=== PATIENT | female | born 1965 | race Caucasian/White ===

== ENCOUNTER 2016-08-27 12:53 | Emergency (ER) | payer OTHER ==
[~2016-08-27 12:53] MED LIST: 'PARAFON FORTE500 M1 PO; ALBUTEROL0.09 MG/A2; AMBIEN10 M1 PO; AMLODIPINE BES2.5 MG PO; AMLODIPINE BESY1 TAB PO; AMOXICILLIN500 MG PO; ATENOLOL25 MG PO; ATENOLOL50 M1 PO; ATENOLOL50 MG PO; B12,B-12,B 12500 MC1 PO; BACTRIM DS 8001 TA1 PO; CARAFATE1 G1 PO; CATAPRES0.1 MG PO; CHLORTHALIDONE25 MG PO; CIPRO500 MG PO; CIPROFLOXACIN500 MG PO; COLACE100 MG PO; COREG25 MG PO; FEOSOL325 MG PO; FLONASE 0.05% 121 EA NAS; FLONASE ALLERG9.9 ML NAS; HYDR25T PO; HYDROCODONE BIT1 T11 PO; Hydralazine Hyd25 MG PO; IBU800 MG PO; K-DUR20 MEQ PO; K-Dur 20MEQ20 MEQ PO; LISINOPRIL AND1 TA2 PO; LISINOPRIL HCTZ1 TA1 PO; LISINOPRIL/HCTZ PO; LISINOPRIL20 MG PO; LOPRESSOR50 MG PO; MACROBID100 M1 PO; MEDROL DOSEPAK4 MG PO; METOPROLOL TART50 M1 PO; MOTRIN IB200 MG PO; MOTRIN800 MG PO; Motrin,Rufen800 MG PO; NEXIUM40 MG PO; NORCO 325 MG-101 TAB PO; NORCO 5-325 TA1 EACH PO; NORVASC10 MG PO; PERCOCET 325 MG1 TA2 PO; PHENERGAN25 M1 PO; PHENERGAN25 M3 PO; PREDNICOT20 MG PO; PREDNISONE10 MG PO; PRILOSEC20 M2 PO; PROMETHAZINE25 M1 PO; PROTONIX TR40 M1 PO; PROTONIX40 MG PO; Phenergan25 MG PO; ROBITUSSIN DM 105 ML PO; SKELAXIN800 M1 PO; TAMIFLU75 MG PO; TRAMADOL HCL50 MG PO; TYLENOL EXTRA500 M1 PO; ULTRAM50 MG PO; VENTOLIN H0.09 MG/AC INH; VICO10300 PO; VICODIN 5/500 505 MG PO; VICODIN 500 MG-1 TAB PO; VOLTAREN GEL1% TP; VOLTAREN11 TP; VOLTAREN50 M1 PO; ZOLPIDEM TART10 MG PO; ZYRTEC10 MG PO; Zestril,Prinivi40 MG PO
[2016-08-27 13:08] VITALS: BP 180/110
[2016-08-27] MEDS ORDERED: CLARITIN10 MG PO (13:50)
[2016-08-27] MEDS ORDERED: MUCINEX1200 M1 PO (13:50)
[2016-09-28] MEDS ORDERED: 'PARAFON FORTE500 M1 PO (12:26)
[2016-09-28] MEDS ORDERED: PREDNISONE10 MG PO (12:26)
== END 2016-08-27 14:13 | disposition home or self-care (01) ==
LOC: ED 12:53
DX: R05 Cough (principal); R19.7 Diarrhea, unspecified; I10 Essential (primary) hypertension; Z88.1 Allergy status to other antibiotic agents; Z88.6 Allergy status to analgesic agent; Z88.8 Allergy status to other drugs, medicaments and biological substances

== ENCOUNTER 2016-11-13 14:48 | Emergency (ER) | payer OTHER ==
[~2016-11-13] VITALS: Wt 117.9 kg
[~2016-11-13 14:48] MED LIST changes: +CLARITIN10 MG PO; +MUCINEX1200 M1 PO
[2016-11-13 15:44] LABS: BASO # 0.1 10*3/uL (0.0-0.1); BASO % 1.1 % (0.0-1.0); EOS # 0.2 10*3/uL (0.0-0.4); EOS % 4.1 % (1.0-4.0); HEMATOCRIT 35.2 % (37.0-47.0); HEMOGLOBIN 11.3 g/dl (12.0-16.0); LYMPH # 2.3 10*3/uL (1.3-4.4); LYMPH % 42.6 % (27.0-41.0); MEAN CELL VOLUME 88.2 fl (81.0-99.0); MEAN CORPUSCULAR HGB 28.3 pg (27.0-31.0); MEAN CORPUSCULAR HGB CONC 32.1 g/dl (33.0-37.0); MONO # 0.5 10*3/uL (0.1-1.0); MONO % 8.3 % (3.0-9.0); NEUT # 2.4 10*3/uL (2.3-7.9); NEUT % 43.5 % (47.0-73.0); PLATELET COUNT AUTOMATED 319 10*3/uL (130-400); RED BLOOD COUNT 3.99 10*6/uL (4.10-5.10); RED CELL DISTRI WIDTH 15.9 % (0-14.5); WHITE BLOOD COUNT 5.4 10*3/uL (4.8-10.8)
[2016-11-13 16:02] LABS: BUN 13 mg/dl (7-24); CARBON DIOXIDE 22 mmol/L (21-32); CHLORIDE 110 mmol/L (98-107); EST GLOM FILT AFRICAN AMERICAN > 60 ml/min; GLUCOSE 90 mg/dL (65-99); LDH 233 U/L (84-246); MAGNESIUM 2.1 mg/dL (1.5-2.1); POTASSIUM 4.1 mmol/L (3.5-5.1); SGOT/AST 21 IU/L (3-35); SGPT/ALT 30 U/L (12-78); SODIUM 142 mmol/L (136-145)
[2016-11-13 16:06] LABS: ALKALINE PHOSPHATASE 82 U/L (45-117); BILIRUBIN, TOTAL 0.3 mg/dl (0.2-1.0); CKMB 0.8 ng/ml (0.5-3.6); CPK 114 U/L (26-192); TOTAL PROTEIN 7.5 gm/dL (6.4-8.2)
[2016-11-13 16:07] LABS: TROPONIN I < 0.015 ng/ml (<0.045)
== END 2016-11-13 17:26 | disposition home or self-care (01) ==
LOC: ED 14:48
PROVIDERS: Physician Assistant
DX: I10 Essential (primary) hypertension (principal); Z87.442 Personal history of urinary calculi; Z88.1 Allergy status to other antibiotic agents; Z88.6 Allergy status to analgesic agent; Z88.8 Allergy status to other drugs, medicaments and biological substances

== ENCOUNTER → 2016-11-20 | Outpatient (CLI) | payer OTHER | END | disposition home or self-care (01) | LOC: RESCLI 13:19 | DX: I10 Essential (primary) hypertension (principal); N20.0 Calculus of kidney; R41.3 Other amnesia ==

== ENCOUNTER → 2016-12-18 | Outpatient (CLI) | payer OTHER ==
[2016-12-18 16:31] LABS: BASO # 0.1 10*3/uL (0.0-0.1); BASO % 0.5 % (0.0-1.0); EOS # 0.1 10*3/uL (0.0-0.4); EOS % 1.2 % (1.0-4.0); HEMATOCRIT 35.9 % (37.0-47.0); HEMOGLOBIN 11.5 g/dl (12.0-16.0); IG # 0.1 10*3/uL (0.0-0.1); LYMPH # 3.7 10*3/uL (1.3-4.4); LYMPH % 33.5 % (27.0-41.0); MEAN CELL VOLUME 89.5 fl (81.0-99.0); MEAN CORPUSCULAR HGB 28.7 pg (27.0-31.0); MEAN PLATELET VOLUME 10.3 fl (9.6-12.3); MONO # 0.9 10*3/uL (0.1-1.0); MONO % 8.2 % (3.0-9.0); NEUT # 6.2 10*3/uL (2.3-7.9); NEUT % 56.1 % (47.0-73.0); PLATELET COUNT AUTOMATED 343 10*3/uL (130-400); RED BLOOD COUNT 4.01 10*6/uL (4.10-5.10); RED CELL DISTRI WIDTH 15.2 % (0-14.5); WHITE BLOOD COUNT 11.1 10*3/uL (4.8-10.8)
== END | disposition home or self-care (01) ==
LOC: RESCLI 02:02 → LAB 02:02 → RESCLI 08:33
PROVIDERS: Emergency Medicine
DX: R23.2 Flushing (principal)

== ENCOUNTER → 2017-01-15 | Outpatient (CLI) | payer OTHER | END | disposition home or self-care (01) | LOC: RESCLI | DX: I10 Essential (primary) hypertension (principal); E66.9 Obesity, unspecified; J45.909 Unspecified asthma, uncomplicated ==

== ENCOUNTER → 2017-01-31 | Outpatient (CLI) | payer OTHER ==
[2017-01-31 10:40] LABS: BILIRUBIN NEGATIVE (NEGATIVE); BLOOD NEGATIVE (NEGATIVE); CLARITY SL CLOUDY (CLEAR); COLOR YELLOW (YELLOW); GLUCOSE NEGATIVE (NEGATIVE); KETONE NEGATIVE (NEGATIVE); LEUKO ESTERASE 2+ (NEGATIVE); NITRITE NEGATIVE (NEGATIVE); PROTEIN NEGATIVE (NEGATIVE); UROBILINOGEN 0.2 E.U./dl (0.2-1.0)
[2017-01-31 10:48] LABS: BACTERIA TRACE; EPITHELIAL CELLS 16-20
[2017-01-31 10:49] LABS: URINE REFLEX COMMENT YES (NO)
== END | disposition home or self-care (01) ==
LOC: RESCLI 02:26
PROVIDERS: Internal Medicine
DX: I10 Essential (primary) hypertension (principal); R39.9 Unspecified symptoms and signs involving the genitourinary system; F41.9 Anxiety disorder, unspecified; G47.00 Insomnia, unspecified; E66.9 Obesity, unspecified; R23.8 Other skin changes; R23.2 Flushing

== ENCOUNTER → 2017-02-05 | Outpatient (CLI) | payer OTHER ==
[2017-02-05 19:26] LABS: HEMATOCRIT 34.7 % (37.0-47.0); HEMOGLOBIN 11.1 g/dl (12.0-16.0); MEAN CELL VOLUME 91.3 fl (81.0-99.0); MEAN CORPUSCULAR HGB 29.2 pg (27.0-31.0); MEAN PLATELET VOLUME 10.7 fl (9.6-12.3); RED BLOOD COUNT 3.8 10*6/uL (4.10-5.10); RED CELL DISTRI WIDTH 14.6 % (0-14.5); WHITE BLOOD COUNT 11.6 10*3/uL (4.8-10.8)
[2017-02-05 19:51] LABS: ALBUMIN 3.3 gm/dl (3.1-4.5); ALKALINE PHOSPHATASE 71 U/L (45-117); BILIRUBIN, TOTAL 0.2 mg/dl (0.2-1.0); BUN 17 mg/dl (7-24); CARBON DIOXIDE 22 mmol/L (21-32); CHLORIDE 113 mmol/L (98-107); CHOLESTEROL 213 mg/dL (<200); EST GLOM FILT AFRICAN AMERICAN > 60 ml/min; GLUCOSE 83 mg/dL (65-99); HDL CHOLESTEROL 72 mg/dl (40-60); LDL CHOLESTEROL 108 mg/dL (9-159); POTASSIUM 3.6 mmol/L (3.5-5.1); SGOT/AST 29 IU/L (3-35); SGPT/ALT 48 U/L (12-78); SODIUM 147 mmol/L (136-145); TOTAL PROTEIN 6.9 gm/dL (6.4-8.2); TRIGLYCERIDES 166 mg/dl (<150); VLDL CHOLESTEROL 33 mg/dL (6-40)
[2017-02-05 19:57] LABS: HEMOGLOBIN A1c 5.2 % (4.8-5.6)
== END | disposition home or self-care (01) ==
LOC: LAB 01:57 → US 18:00
PROVIDERS: Internal Medicine
DX: E66.9 Obesity, unspecified (principal); F41.9 Anxiety disorder, unspecified; G47.00 Insomnia, unspecified; I10 Essential (primary) hypertension; R39.0 Extravasation of urine; R39.9 Unspecified symptoms and signs involving the genitourinary system; R23.2 Flushing

== ENCOUNTER → 2017-02-14 | Outpatient (CLI) | payer OTHER | END | disposition home or self-care (01) | LOC: RESCLI 00:26 | DX: I10 Essential (primary) hypertension (principal); N39.0 Urinary tract infection, site not specified; E66.9 Obesity, unspecified; F41.9 Anxiety disorder, unspecified; J45.909 Unspecified asthma, uncomplicated ==

== ENCOUNTER → 2017-03-19 | Outpatient (CLI) | payer OTHER | END | disposition home or self-care (01) | LOC: RESCLI 02:19 | DX: I10 Essential (primary) hypertension (principal); E66.9 Obesity, unspecified; F41.9 Anxiety disorder, unspecified ==

== ENCOUNTER 2017-03-26 15:31 | Emergency (ER) | payer OTHER ==
[~2017-03-26] VITALS: Wt 117.9 kg
[2017-03-26 15:32] VITALS: BP 176/87
[2017-03-26 16:49] LABS: BASO % 0.7 % (0.0-1.0); EOS # 0.2 10*3/uL (0.0-0.4); EOS % 3.5 % (1.0-4.0); HEMATOCRIT 32.4 % (37.0-47.0); HEMOGLOBIN 10.5 g/dl (12.0-16.0); LYMPH # 1.9 10*3/uL (1.3-4.4); LYMPH % 33.7 % (27.0-41.0); MEAN CELL VOLUME 89.5 fl (81.0-99.0); MEAN CORPUSCULAR HGB CONC 32.4 g/dl (33.0-37.0); MEAN PLATELET VOLUME 10.1 fl (9.6-12.3); MONO # 0.5 10*3/uL (0.1-1.0); MONO % 8.9 % (3.0-9.0); NEUT % 52.9 % (47.0-73.0); PLATELET COUNT AUTOMATED 267 10*3/uL (130-400); RED BLOOD COUNT 3.62 10*6/uL (4.10-5.10); RED CELL DISTRI WIDTH 14.1 % (0-14.5); WHITE BLOOD COUNT 5.8 10*3/uL (4.8-10.8)
[2017-03-26 17:04] LABS: ALBUMIN 3.3 gm/dl (3.1-4.5); ALKALINE PHOSPHATASE 80 U/L (45-117); BILIRUBIN, TOTAL 0.3 mg/dl (0.2-1.0); BUN 11 mg/dl (7-24); CARBON DIOXIDE 24 mmol/L (21-32); CHLORIDE 113 mmol/L (98-107); EST GLOM FILT AFRICAN AMERICAN > 60 ml/min; GLUCOSE 96 mg/dL (65-99); POTASSIUM 3.8 mmol/L (3.5-5.1); SGOT/AST 28 IU/L (3-35); SGPT/ALT 25 U/L (12-78); SODIUM 145 mmol/L (136-145); TOTAL PROTEIN 6.4 gm/dL (6.4-8.2)
== END 2017-03-26 17:19 | disposition home or self-care (01) ==
LOC: ED 15:31
PROVIDERS: Registered Nurse
DX: R60.0 Localized edema (principal); Z88.1 Allergy status to other antibiotic agents; Z88.6 Allergy status to analgesic agent; Z88.8 Allergy status to other drugs, medicaments and biological substances

== ENCOUNTER → 2017-04-23 | Outpatient (CLI) | payer OTHER | END | disposition home or self-care (01) | LOC: RESCLI 10:03 | DX: K21.9 Gastro-esophageal reflux disease without esophagitis (principal); I10 Essential (primary) hypertension; F41.9 Anxiety disorder, unspecified; J45.909 Unspecified asthma, uncomplicated; Z88.6 Allergy status to analgesic agent; Z88.1 Allergy status to other antibiotic agents; Z88.8 Allergy status to other drugs, medicaments and biological substances ==

== ENCOUNTER → 2017-05-18 | Day surgery (SDC) | payer OTHER ==
[~2017-05-18] VITALS: Ht 175.2 cm; Wt 117.9 kg
[~2017-05-18] MED LIST changes: +CARAFATE1 GM PO; +NORCO 10-325 T1 EACH PO; +PRILOSEC10 M2 PO
--- NOTE | ~2017-05-18 | O ---
[place], [place] OPERATIVE NOTE NAME: KENNEDY MAYS UNIT #: [id number] ROOM: DOCTOR: DENEEN PAGAN MD BIRTHDATE: [birth year] DOS: GASTRO-ENDOSCOPIC REPORT INDICATIONS: A 51-year-old patient who has presented with chief complaint of epigastric distress, dyspepsia. The patient with history of GI bleed in past. She has been on Prilosec 40 mg every day. FAMILY HISTORY: Noncontributory. PAST MEDICAL HISTORY: Asthma, hypertension. ALLERGIES: IMITREX, ZOFRAN, ZOMIG, KEFLEX, TORADOL. PAST SURGICAL HISTORY: Right hydronephrosis, renal lithiasis. PROCEDURE: Today's procedure part of investigation is panendoscopy plus biopsy. PREMEDICATION: Versed and Diprivan. SCOPE: Olympus forward-viewing gastroscope Q10 video. REPORT: After putting the patient in the left lateral position and after application of lubricant to the scope, the scope was introduced. Thereafter, under direct visualization, I advanced through the length of the esophagus without difficulty. Esophagus, cervicothoracic distally carefully examined. Gastric pouch was entered. Multi-punctate small antral ulcerations were identified, photographed, margin of one was biopsied. Duodenal bulb, second and third part within normal limits. Scope was gradually withdrawn along the lesser curvature. GI reflexion of the scope reveals cardia to be benign. Air was suctioned out. The patient was extubated, tolerated procedure well. IMPRESSION: Multi-antral ulcerations, status post biopsy. PLAN AND DISCUSSION: We are going to continue with omeprazole 40 mg daily, additional Carafate 1 gram one hour before meals and at bedtime was added for the next 2 months. The patient taking 2 to 3 Aleve a day and that is the culprit as far as induction of the ulcerations is concerned. The patient advised to substitute with Tylenol if she has ____ the therapy is going to be ____ above. Thank you very much indeed. [place], [place] OPERATIVE NOTE NAME: KENNEDY MAYS UNIT #: [id number] ROOM: DOCTOR: DENEEN PAGAN MD BIRTHDATE: [birth year] DENEEN PAGAN MD CM:ANITRA:OPERATIVE NOTE 1619 07 DENEEN PAGAN MD 05/18/17 2007 interface
[2017-05-18 14:39] VITALS: BP 177/88
[2017-05-18 16:15] VITALS: BP 156/86
[2017-05-18 16:30] VITALS: BP 156/82
[2017-05-18 16:45] VITALS: BP 145/84
== END | disposition home or self-care (01) ==
LOC: SDC 05-16 10:15
DX: K29.50 Unspecified chronic gastritis without bleeding (principal); K25.9 Gastric ulcer, unspecified as acute or chronic, without hemorrhage or perforation; I10 Essential (primary) hypertension; J45.909 Unspecified asthma, uncomplicated; Z88.8 Allergy status to other drugs, medicaments and biological substances; G43.909 Migraine, unspecified, not intractable, without status migrainosus; D64.9 Anemia, unspecified; F32.9 Major depressive disorder, single episode, unspecified; M19.90 Unspecified osteoarthritis, unspecified site; Z98.51 Tubal ligation status; Z98.890 Other specified postprocedural states; Z80.9 Family history of malignant neoplasm, unspecified; Z83.3 Family history of diabetes mellitus

== ENCOUNTER 2017-06-02 12:56 | Emergency (ER) | payer OTHER ==
[~2017-06-02] VITALS: Ht 175.2 cm; Wt 117.9 kg
[2017-06-02 13:05] VITALS: BP 196/120
== END 2017-06-02 13:14 | disposition home or self-care (01) ==
LOC: ED 12:56
DX: K08.89 Other specified disorders of teeth and supporting structures (principal); I11.0 Hypertensive heart disease with heart failure; I50.9 Heart failure, unspecified; J45.909 Unspecified asthma, uncomplicated; M17.10 Unilateral primary osteoarthritis, unspecified knee; M17.12 Unilateral primary osteoarthritis, left knee; G43.909 Migraine, unspecified, not intractable, without status migrainosus; Z88.1 Allergy status to other antibiotic agents; Z88.6 Allergy status to analgesic agent; Z88.8 Allergy status to other drugs, medicaments and biological substances; Z79.899 Other long term (current) drug therapy

== ENCOUNTER 2017-06-25 15:32 | Inpatient (IN) | payer OTHER ==
[~2017-06-25] VITALS: Ht 175.3 cm; Wt 119.5 kg
[2017-06-25 15:45] VITALS: BP 182/97
[2017-06-25 16:21] LABS: BASO # 0.1 10*3/uL (0.0-0.1); BASO % 0.5 % (0.0-1.0); EOS # 0.1 10*3/uL (0.0-0.4); EOS % 1.3 % (1.0-4.0); HEMATOCRIT 40.8 % (37.0-47.0); HEMOGLOBIN 13.2 g/dl (12.0-16.0); LYMPH # 2.8 10*3/uL (1.3-4.4); LYMPH % 29.1 % (27.0-41.0); MEAN CELL VOLUME 87.9 fl (81.0-99.0); MEAN CORPUSCULAR HGB 28.4 pg (27.0-31.0); MEAN CORPUSCULAR HGB CONC 32.4 g/dl (33.0-37.0); MEAN PLATELET VOLUME 10.7 fl (9.6-12.3); MONO # 0.9 10*3/uL (0.1-1.0); MONO % 9.1 % (3.0-9.0); NEUT # 5.7 10*3/uL (2.3-7.9); NEUT % 59.8 % (47.0-73.0); PLATELET COUNT AUTOMATED 297 10*3/uL (130-400); RED BLOOD COUNT 4.64 10*6/uL (4.10-5.10); RED CELL DISTRI WIDTH 14.8 % (0-14.5); WHITE BLOOD COUNT 9.5 10*3/uL (4.8-10.8)
[2017-06-25 16:31] LABS: ACT PARTIAL THROMBO TIME 25.9 SECONDS (20.8-31.5)
[2017-06-25 16:54] LABS: ALBUMIN 4.1 gm/dl (3.1-4.5); BUN 13 mg/dl (7-24); CHLORIDE 111 mmol/L (98-107); CREATININE 1.37 mg/dL (0.55-1.02); POTASSIUM 3.5 mmol/L (3.5-5.1); SGOT/AST 15 IU/L (3-35); SGPT/ALT 19 U/L (12-78); SODIUM 138 mmol/L (136-145)
[2017-06-25 16:57] LABS: ALKALINE PHOSPHATASE 94 U/L (45-117)
[2017-06-25 16:58] LABS: TROPONIN I < 0.015 ng/ml (<0.045)
[2017-06-25 20:35] VITALS: BP 174/106
[2017-06-25] MEDS ORDERED: PHENERGAN25 M3 PO (20:56)
[2017-06-25] MEDS ORDERED: HYDROCHLOROTHIA25 M1 PO (20:58)
[2017-06-26] VITALS: BP 158/98; BP 170/91
[2017-06-26 05:36] VITALS: BP 142/81
[2017-06-26 07:00] LABS: BUN 11 mg/dl (7-24); CHLORIDE 111 mmol/L (98-107); CHOLESTEROL 184 mg/dL (<200); CREATININE 0.95 mg/dL (0.55-1.02); POTASSIUM 3.1 mmol/L (3.5-5.1); SODIUM 139 mmol/L (136-145); TRIGLYCERIDES 119 mg/dl (<150); VLDL CHOLESTEROL 24 mg/dL (6-40)
[2017-06-26 07:04] LABS: VITAMIN D, 25-HYDROXY 11.2 ng/mL (30-100)
[2017-06-26 07:08] LABS: HDL CHOLESTEROL 57 mg/dl (40-60); LDL CHOLESTEROL 103 mg/dL (9-159)
[2017-06-26 07:20] LABS: BASO # 0.1 10*3/uL (0.0-0.1); BASO % 0.8 % (0.0-1.0); EOS # 0.2 10*3/uL (0.0-0.4); EOS % 3.5 % (1.0-4.0); HEMATOCRIT 37.1 % (37.0-47.0); HEMOGLOBIN 12.2 g/dl (12.0-16.0); LYMPH # 2.4 10*3/uL (1.3-4.4); LYMPH % 35.7 % (27.0-41.0); MEAN CELL VOLUME 87.1 fl (81.0-99.0); MEAN CORPUSCULAR HGB 28.6 pg (27.0-31.0); MEAN CORPUSCULAR HGB CONC 32.9 g/dl (33.0-37.0); MEAN PLATELET VOLUME 10.5 fl (9.6-12.3); MONO # 0.6 10*3/uL (0.1-1.0); MONO % 9.5 % (3.0-9.0); NEUT # 3.3 10*3/uL (2.3-7.9); NEUT % 50.3 % (47.0-73.0); PLATELET COUNT AUTOMATED 263 10*3/uL (130-400); RED BLOOD COUNT 4.26 10*6/uL (4.10-5.10); RED CELL DISTRI WIDTH 14.8 % (0-14.5); WHITE BLOOD COUNT 6.6 10*3/uL (4.8-10.8)
[2017-06-26 07:23] LABS: ACT PARTIAL THROMBO TIME 26.7 SECONDS (20.8-31.5)
[2017-06-26 08:00] VITALS: BP 148/80
== END 2017-06-26 16:55 | disposition home or self-care (01) | DRG 304 ==
LOC: EDSTATUS 15:32 → ED 15:32 → EDHOLD 18:07 → 4E 18:07
PROVIDERS: Emergency Medicine; Internal Medicine; ADMIT Internal Medicine
PROC: 4A02XM4 Measurement of Cardiac Total Activity, External Approach (ICD-10-PCS; principal; 2017-06-26)
PROC: 3E073KZ Introduction of Other Diagnostic Substance into Coronary Artery, Percutaneous Approach (ICD-10-PCS; 2017-06-26)
DX: I16.0 Hypertensive urgency (principal); N17.0 Acute kidney failure with tubular necrosis; R07.89 Other chest pain; E87.8 Other disorders of electrolyte and fluid balance, not elsewhere classified; E83.41 Hypermagnesemia; I10 Essential (primary) hypertension; E78.5 Hyperlipidemia, unspecified; E66.9 Obesity, unspecified; J45.909 Unspecified asthma, uncomplicated; G89.29 Other chronic pain; M17.12 Unilateral primary osteoarthritis, left knee; G47.00 Insomnia, unspecified; G43.909 Migraine, unspecified, not intractable, without status migrainosus; Z84.89 Family history of other specified conditions; Z86.73 Personal history of transient ischemic attack (TIA), and cerebral infarction without residual deficits; Z88.8 Allergy status to other drugs, medicaments and biological substances; Z79.899 Other long term (current) drug therapy; Z98.51 Tubal ligation status; Z98.1 Arthrodesis status; Z87.442 Personal history of urinary calculi; Z82.49 Family history of ischemic heart disease and other diseases of the circulatory system; Z83.3 Family history of diabetes mellitus; Z80.1 Family history of malignant neoplasm of trachea, bronchus and lung; Z83.6 Family history of other diseases of the respiratory system; Z68.38 Body mass index [BMI] 38.0-38.9, adult

== ENCOUNTER → 2017-09-07 | Outpatient (CLI) | payer OTHER ==
[~2017-09-07] MED LIST changes: +HYDROCHLOROTHIA25 M1 PO
== END | disposition home or self-care (01) ==
LOC: ORTHO 02:25
DX: M25.80 Other specified joint disorders, unspecified joint (principal)

== ENCOUNTER → 2017-09-17 | Outpatient (CLI) | payer OTHER | END | disposition home or self-care (01) | LOC: RESCLI 02:13 | DX: M17.12 Unilateral primary osteoarthritis, left knee (principal); M21.42 Flat foot [pes planus] (acquired), left foot; M21.41 Flat foot [pes planus] (acquired), right foot ==

== ENCOUNTER → 2017-11-21 | Outpatient (CLI) | payer OTHER ==
[2017-11-21 09:34] LABS: BILIRUBIN NEGATIVE (NEGATIVE); BLOOD 2+ (NEGATIVE); CLARITY SL CLOUDY (CLEAR); COLOR YELLOW (YELLOW); GLUCOSE NEGATIVE (NEGATIVE); KETONE NEGATIVE (NEGATIVE); LEUKO ESTERASE NEGATIVE (NEGATIVE); NITRITE NEGATIVE (NEGATIVE); UROBILINOGEN 0.2 E.U./dl (0.2-1.0)
[2017-11-21 09:42] LABS: RBC 16-20 rbc/hpf (0-2)
[2017-11-21 10:07] LABS: IRON 72 ug/dL (50-170); TOTAL IRON BINDING CAPACITY 453 ug/dl (250-450)
== END | disposition home or self-care (01) ==
LOC: RESCLI 01:32
PROVIDERS: Student in an Organized Health Care Education/Training Program
DX: I10 Essential (primary) hypertension (principal); M54.42 Lumbago with sciatica, left side; G89.29 Other chronic pain; G25.81 Restless legs syndrome; R11.0 Nausea; J45.20 Mild intermittent asthma, uncomplicated; K21.9 Gastro-esophageal reflux disease without esophagitis; F11.90 Opioid use, unspecified, uncomplicated; F41.9 Anxiety disorder, unspecified; R30.0 Dysuria; E66.09 Other obesity due to excess calories

== ENCOUNTER 2017-12-19 17:57 | Emergency (ER) | payer OTHER ==
[~2017-12-19] VITALS: Wt 108.9 kg
[2017-12-19 18:01] VITALS: BP 176/102
[2017-12-19 18:31] LABS: BILIRUBIN NEGATIVE (NEGATIVE); BLOOD 3+ (NEGATIVE); CLARITY SL CLOUDY (CLEAR); COLOR YELLOW (YELLOW); GLUCOSE NEGATIVE (NEGATIVE); KETONE NEGATIVE (NEGATIVE); LEUKO ESTERASE 1+ (NEGATIVE); NITRITE NEGATIVE (NEGATIVE); SPECIFIC GRAVITY >= 1.030 (1.005-1.030); UROBILINOGEN 0.2 E.U./dl (0.2-1.0)
[2017-12-19 18:36] LABS: BACTERIA 4+; RBC 16-20 rbc/hpf (0-2)
[2017-12-19 19:02] LABS: BASO # 0.1 10*3/uL (0.0-0.1); BASO % 1.3 % (0.0-1.0); EOS # 0.3 10*3/uL (0.0-0.4); EOS % 4.3 % (1.0-4.0); HEMATOCRIT 38.4 % (37.0-47.0); HEMOGLOBIN 12.7 g/dl (12.0-16.0); LYMPH # 2.5 10*3/uL (1.3-4.4); LYMPH % 34.4 % (27.0-41.0); MEAN CELL VOLUME 89.1 fl (81.0-99.0); MEAN CORPUSCULAR HGB 29.5 pg (27.0-31.0); MEAN CORPUSCULAR HGB CONC 33.1 g/dl (33.0-37.0); MEAN PLATELET VOLUME 10.6 fl (9.6-12.3); MONO # 0.6 10*3/uL (0.1-1.0); MONO % 7.8 % (3.0-9.0); NEUT # 3.7 10*3/uL (2.3-7.9); NEUT % 51.9 % (47.0-73.0); PLATELET COUNT AUTOMATED 286 10*3/uL (130-400); RED BLOOD COUNT 4.31 10*6/uL (4.10-5.10); RED CELL DISTRI WIDTH 14.5 % (0-14.5); WHITE BLOOD COUNT 7.2 10*3/uL (4.8-10.8)
[2017-12-19 19:17] LABS: ALBUMIN 3.8 gm/dl (3.1-4.5); ALKALINE PHOSPHATASE 94 U/L (45-117); BUN 18 mg/dl (7-24); CHLORIDE 116 mmol/L (98-107); CREATININE 1.11 mg/dL (0.55-1.02); POTASSIUM 3.5 mmol/L (3.5-5.1); SGOT/AST 17 IU/L (3-35); SGPT/ALT 17 U/L (12-78); SODIUM 145 mmol/L (136-145); TOTAL PROTEIN 7.1 gm/dL (6.4-8.2)
[2017-12-19] MEDS ORDERED: PYRIDIUM200 M1 PO (19:48)
[2017-12-19] MEDS ORDERED: SEPTDS PO (19:48)
== END 2017-12-19 19:47 | disposition home or self-care (01) ==
LOC: ED 17:57
PROVIDERS: Physician Assistant
DX: N23 Unspecified renal colic (principal); N39.0 Urinary tract infection, site not specified; Z98.890 Other specified postprocedural states; Z98.51 Tubal ligation status; Z87.442 Personal history of urinary calculi; Z79.899 Other long term (current) drug therapy; Z88.1 Allergy status to other antibiotic agents; Z88.6 Allergy status to analgesic agent; Z88.8 Allergy status to other drugs, medicaments and biological substances

== ENCOUNTER → 2018-11-08 | Outpatient (CLI) | payer OTHER ==
[~2018-11-08] MED LIST changes: +PYRIDIUM200 M1 PO; +SEPTDS PO
== END | disposition home or self-care (01) ==
LOC: ORTHO 02:54
DX: M17.12 Unilateral primary osteoarthritis, left knee (principal)